=== PATIENT | male | born 2000 | race Caucasian/White ===

== ENCOUNTER 2018-01-05 20:56 | Emergency (ER) | payer OTHER ==
--- NOTE | 2018-01-05 22:01 | CT ---
CT BRAIN PERFORMED WITHOUT CONTRAST ENHANCEMENT: HISTORY: Head injury status post back flip. FINDINGS: The ventricular and cisternal system is within normal limits. There are no signs of intracerebral he morrhage or extraaxial fluid collection. The mastoid air cells are clear. There is some mild ethmoi d and maxillary sinus mucosal change. IMPRESSION: No acute intracranial abnormalities. POS: [facility]
--- NOTE | 2018-01-05 22:03 | CT ---
CT CERVICAL SPINE PERFORMED WITHOUT CONTRAST ENHANCEMENT: HISTORY: Neck pain status post attempting a back flip. FINDINGS: The vertebral bodies are normal in height. Slight reversal to the normal cervical curve could be rel ated to muscle spasm. The facets appear to be in normal alignment. There is no evidence of canal or foraminal stenosis. There is no CT evidence for fracture. IMPRESSION: No CT evidence of fracture of the cervical spine. POS: [facility]
== END 2018-01-05 22:07 | disposition home or self-care (01) ==
LOC: ERS 20:56
DX: S06.0X0A Concussion without loss of consciousness, initial encounter (principal); S16.1XXA Strain of muscle, fascia and tendon at neck level, initial encounter; W22.8XXA Striking against or struck by other objects, initial encounter; Y93.18 Activity, surfing, windsurfing and boogie boarding
CPT/HCPCS: 70450; 72125